=== PATIENT | female | born 1980 | race Two or more races ===

== ENCOUNTER 2019-01-05 23:31 | Emergency (ER) | payer MEDICAID ==
[2019-01-06] MEDS ORDERED: ACETAMINOPHEN 325 MG TABLET PO ONE (00:56)
--- NOTE | 2019-01-06 01:00 | ER Document Report ---
ED General - General Chief Complaint: Productive Cough Stated Complaint: SHORTNESS OF BREATH Time Seen by Provider: 01/06/19 00:51 TRAVEL OUTSIDE OF THE [place] IN LAST 30 DAYS: No - HPI Notes: .38-year-old female presents with 1 week of cough and now dyspnea. Initially productive of green-yellow sputum, some subjective fever. However is become nonproductive over the last several days she is becoming increasingly more dyspneic, especially on exertion. Moderate intensity, gradual onset, nonradiating. No recent travel, travel outside the country. No other medical issues. No recent use of antibiotics. Moderate intensity. Nonradiating. No other modifying factors, no other associated symptoms, no other provocative or palliative factors - Related Data Allergies/Adverse Reactions: No Known Allergies Allergy (Unverified 01/05/19 23:44) Home Medications: synthroid. certraline. BC pills. OTC cough medicine Past Medical History - Social History Smoking Status: Never Smoker Frequency of alcohol use: None Drug Abuse: None Family History: Reviewed & Not Pertinent Patient has suicidal ideation: No Patient has homicidal ideation: No - Medical History Medical History: Negative Review of Systems - Review of Systems Notes: Review of systems as in the history of present illness, otherwise negative x 10 systems. Physical Exam - Vital signs Vitals: Temp Pulse Resp BP Pulse Ox 98.9 F 114 H 18 133/51 H 96 01/05/19 23:37 01/05/19 23:37 01/05/19 23:37 01/05/19 23:37 01/05/19 23:37 - Notes Notes: General: Well developed . HEENT: Normocephalic, atraumatic. Pupils equal round reactive to light. No JVD. Chest: No trauma. Respiratory: Fair air exchange, coarse breath sounds, crackles in the posterior lateral left lung field Cardiac: Regular rhythm. No murmurs or gallops. Abdomen: Soft, benign. Nondistended. Nontender. Back: No asymmetry or gross abnormality. Motor: Grossly normal power and tone. Neurologic: Alert, nonfocal. Cranial nerves II-12 are intact. Sensation intact. Vascular: Well perfused. Normal peripheral pulses. Skin: No petechiae or purpura. Course - Re-evaluation Re-evalutation: 01/06/19 01:10 38-year-old female with likely pneumonia, complicated by significant dyspnea. We will proceed with basic labs, x-ray, fluids, reevaluate. 01/06/19 02:15 Labs reviewed, chemistries unremarkable, CBC unremarkable. Chest x-ray shows patchy bilateral lower lung field pneumonia. Patient has maintained her oxygen saturation, feels somewhat better. Be treated as community acquired pneumonia as an outpatient with oral doxycycline, given a dose in the ED, prescription for doxycycline and antitussives. - Vital Signs Vital signs: Temp Pulse Resp BP Pulse Ox 98.9 F 119 H 18 133/51 H 94 01/05/19 23:37 01/05/19 23:49 01/05/19 23:37 01/05/19 23:37 01/05/19 23:49 - Laboratory Result Diagrams: 01/06/19 01:20 01/06/19 01:20 Laboratory results interpreted by me: 01/06/19 01/06/19 01:20 01:20 Hgb 11.2 L Hct 33.6 L RDW 15.1 H Sodium 136.5 L Discharge - Discharge Clinical Impression: CAP (community acquired pneumonia) Qualifiers: Laterality: unspecified laterality Qualified Code(s): J18.9 - Pneumonia, unspecified organism Condition: Stable Disposition: HOME, SELF-CARE Instructions: Pneumonia ([facility]) Additional Instructions: Follow-up with your doctor in the next couple of days. Prescriptions: Hydrocodone Bit/Homatropine [Hycodan Syrup 5-1.5 mg/5 ml Ud Cup] 5 ml PO Q4HP PRN #120 ml PRN Reason: Doxycycline Hyclate 100 mg PO BID #20 capsule
[2019-01-06 01:37] LABS: ABSOLUTE EOSINOPHILS # (AUTO) 0.1 10^3/uL (0.0-0.6); ABSOLUTE LYMPHOCYTES (AUTO) 1.4 10^3/uL (0.5-4.7); ABSOLUTE MONOCYTES (AUTO) 0.9 10^3/uL (0.1-1.4); ABSOLUTE NEUT (AUTO) 7.2 10^3/uL (1.7-8.2); BASOPHILS % (AUTO) 0.3 % (0-2); EOSINOPHILS % (AUTO) 1.4 % (0-6); HEMATOCRIT 33.6 % (36.0-47.0); HEMOGLOBIN 11.2 g/dL (12.0-15.5); LYMPHOCYTES % (AUTO) 14.8 % (13-45); MEAN CORPUSCULAR HEMOGLOBIN 27.4 pg (27.0-33.4); MEAN CORPUSCULAR HGB CONC 33.3 g/dL (32.0-36.0); MEAN CORPUSCULAR VOLUME 82 fl (80-97); MONOCYTES % (AUTO) 9.2 % (3-13); PLATELET COUNT 213 10^3/uL (150-450); RED BLOOD COUNT 4.08 10^6/uL (3.72-5.28); RED CELL DISTRIBUTION WIDTH 15.1 % (11.5-14.0); SEGMENTED NEUTROPHILS % (AUTO) 74.3 % (42-78); TOTAL CELLS COUNTED % (AUTO) 100 %; WHITE BLOOD COUNT 9.7 10^3/uL (4.0-10.5)
[2019-01-06 01:41] LABS: VENOUS BLOOD BASE EXCESS 0.2 mmol/L; VENOUS BLOOD HCO3 24.9 mmol/L (20-32); VENOUS BLOOD PCO2 40.2 mmHg (35-63); VENOUS BLOOD PH 7.41 (7.30-7.42)
[2019-01-06 01:43] LABS: INTERNATIONAL RATION (INR) 0.97; PROTHROMBIN TIME 12.9 SEC (11.4-15.4)
[2019-01-06] MEDS ORDERED: DOXYCYCLINE HYCLATE 100 MG TABLET PO ONE (01:51)
[2019-01-06 01:53] LABS: ALBUMIN 3.6 g/dL (3.5-5.0); ALKALINE PHOSPHATASE 82 U/L (38-126); ANION GAP 11 (5-19); ASPARTATE AMINO TRANSFERASE 28 U/L (14-36); BILIRUBIN,DIRECT 0.1 mg/dL (0.0-0.4); BILIRUBIN,TOTAL 0.5 mg/dL (0.2-1.3); BLOOD UREA NITROGEN 10 mg/dL (7-20); CALCIUM 8.9 mg/dL (8.4-10.2); CARBON DIOXIDE 24 mmol/L (22-30); CHLORIDE 102 mmol/L (98-107); GLUCOSE 99 mg/dL (75-110); POTASSIUM 3.8 mmol/L (3.6-5.0); TOTAL PROTEIN 7.2 g/dL (6.3-8.2)
--- NOTE | 2019-01-06 02:03 | RADIOLOGY REPORT (SQ) ---
EXAM DESCRIPTION: XR CHEST 2 VIEWS COMPLETED DATE/TME: 01/06/2019 00:57 CLINICAL HISTORY: 38 years, Female, Cough and dyspnea COMPARISON: None. NUMBER OF VIEWS: TECHNIQUE: LIMITATIONS: None. FINDINGS: There are patchy infiltrates in the mid to lower lung bilaterally, compatible with pneumonia. No evidence of pleural effusion. The heart and mediastinum are unremarkable. Pulmonary vascularity appears normal. IMPRESSION: Bilateral pneumonia. copyright 2010 [employer]- All Rights Reserved
[2019-01-06 02:37] VITALS: BP 128/78
== END 2019-01-06 02:40 | disposition home or self-care (01) ==
LOC: ER 23:31
DX: J18.9 Pneumonia, unspecified organism (principal); Z79.899 Other long term (current) drug therapy
CPT/HCPCS: 99283; 36415; 87040; 85025; 85610; 81025; 80053; 82803; 83605; 71046; J3490 ×2

== ENCOUNTER 2019-11-02 16:46 | Emergency (ER) | payer SELFPAY ==
--- NOTE | 2019-11-02 18:13 | ER Document Report ---
ED Medical Screen (RME) - General Chief Complaint: Abdominal Pain Stated Complaint: UPPER ABDOMINAL/BACK PAIN Time Seen by Provider: 11/02/19 18:02 Mode of Arrival: Ambulatory Information source: Patient Notes: Patient is a 38-year-old female comes emergency room complaining of right upper quadrant pain right epigastric pain. Patient states been going on for about 8 months and she is seen a primary care provider who was tested for H. pylori but it seems to be getting worse with radiation to the right back. She states that eating fried fatty food does seem to make it worse also drinking coffee with almond milk and it makes it worse patient is afraid that it is her gallbladder but she started with another episode approximately 1 hour prior to arrival tonight and her made her come to the emergency room to get checked out. Currently she is having no pain or discomfort. She denies any other medical problems with exception of a of hypothyroid. Patient does not smoke drink or do drugs. She currently is on her menses. She is 3 para 3. Physical examination: Patient is a well-nourished well-developed overweight 38-year-old female is in no apparent distress on examination tonight. Cardiac: Regular rate and rhythm no murmurs noted. Lungs: Bilateral breath sounds breath sounds increased clear to auscultation. Abdomen: In a sitting position patient has bowel sounds present all 4 quads on auscultation. She is nontender in all 4 quadrants in a sitting position. Could not elicit a positive Robin sign while sitting. I discussed with patient that we can do some lab work to start with if that comes back negative but would not do any good to do an ultrasound at this time since she is not having any symptoms. If she comes back with elevated LFTs it may be well worth doing an ultrasound for possible cholecystitis. I have greeted and performed a rapid initial assessment of this patient. A comprehensive ED assessment and evaluation of the patient, analysis of test results and completion of the medical decision making process will be conducted by additional ED providers. Dictation of this chart was performed using voice recognition software; therefore, there may be some unintended grammatical errors. TRAVEL OUTSIDE OF THE [place] IN LAST 30 DAYS: No - Related Data Allergies/Adverse Reactions: No Known Allergies Allergy (Verified 11/02/19 18:01) Physical Exam - Vital signs Vitals: Temp Pulse Resp BP Pulse Ox 98.4 F 88 20 122/74 100 11/02/19 17:13 11/02/19 17:13 11/02/19 17:13 11/02/19 17:13 11/02/19 17:13 Course - Vital Signs Vital signs: Temp Pulse Resp BP Pulse Ox 98.4 F 88 20 122/74 100 11/02/19 17:13 11/02/19 17:13 11/02/19 17:13 11/02/19 17:13 11/02/19 17:13
[2019-11-02 19:03] LABS: ABSOLUTE EOSINOPHILS # (AUTO) 0.1 10^3/uL (0.0-0.6); ABSOLUTE LYMPHOCYTES (AUTO) 1.2 10^3/uL (0.5-4.7); ABSOLUTE MONOCYTES (AUTO) 0.7 10^3/uL (0.1-1.4); BASOPHILS % (AUTO) 0.2 % (0-2); EOSINOPHILS % (AUTO) 0.6 % (0-6); HEMOGLOBIN 13.6 g/dL (12.0-15.5); LYMPHOCYTES % (AUTO) 11.2 % (13-45); MEAN CORPUSCULAR HEMOGLOBIN 28.2 pg (27.0-33.4); MEAN CORPUSCULAR HGB CONC 33.2 g/dL (32.0-36.0); MEAN CORPUSCULAR VOLUME 85 fl (80-97); MONOCYTES % (AUTO) 6.3 % (3-13); PLATELET COUNT 238 10^3/uL (150-450); RED BLOOD COUNT 4.82 10^6/uL (3.72-5.28); RED CELL DISTRIBUTION WIDTH 14.4 % (11.5-14.0); SEGMENTED NEUTROPHILS % (AUTO) 81.7 % (42-78); TOTAL CELLS COUNTED % (AUTO) 100 %; WHITE BLOOD COUNT 11.1 10^3/uL (4.0-10.5)
[2019-11-02 19:11] LABS: APPEARANCE,URINE SLIGHTLY-CLOUDY; BILIRUBIN,URINE NEGATIVE (NEGATIVE); COLOR,URINE YELLOW; GLUCOSE, URINE NEGATIVE (NEGATIVE); KETONES,URINE NEGATIVE (NEGATIVE); LEUKOCYTE ESTERASE,URINE NEGATIVE (NEGATIVE); NITRITE,URINE NEGATIVE (NEGATIVE); PROTEIN,URINE NEGATIVE (NEGATIVE); URINE SPECIFIC GRAVITY 1.021; UROBILINOGEN,URINE NEGATIVE mg/dL (<2.0)
[2019-11-02 19:22] LABS: ALBUMIN 4.3 g/dL (3.5-5.0); ALKALINE PHOSPHATASE 120 U/L (38-126); ANION GAP 10 (5-19); ASPARTATE AMINO TRANSFERASE 96 U/L (14-36); BILIRUBIN,TOTAL 0.4 mg/dL (0.2-1.3); BLOOD UREA NITROGEN 18 mg/dL (7-20); CALCIUM 9.7 mg/dL (8.4-10.2); CARBON DIOXIDE 28 mmol/L (22-30); CHLORIDE 101 mmol/L (98-107); GLUCOSE 95 mg/dL (75-110); POTASSIUM 4.7 mmol/L (3.6-5.0); TOTAL PROTEIN 7.8 g/dL (6.3-8.2)
--- NOTE | 2019-11-02 22:24 | ER Document Report ---
ED GI/ - General Chief Complaint: Abdominal Pain Stated Complaint: UPPER ABDOMINAL/BACK PAIN Time Seen by Provider: 11/02/19 18:02 Primary Care Provider: [facility] [Provider Group] - Follow up as needed Mode of Arrival: Ambulatory Notes: Patient is a 38-year-old female that comes emergency department for chief complaint of epigastric pain (she points to the area). She states that around 5 PM she had sudden onset severe pain with nausea, the pain started in the epigastric area and wraps around to her back on the right side. She denies fever, chest pain, shortness of breath, vomiting, abnormal bowel movements. She states she is currently being treated for possible gastritis with Prilosec and Pepcid. She does admit that she has been drinking more alcohol over the past week since her kids are back in school, she also admits to regular coffee with caffeine. Only other past medical history is hypothyroidism. She was tested and negative for H. pylori reportedly. She is currently on her menstrual cycle. She denies any abdominal surgeries. TRAVEL OUTSIDE OF THE [place] IN LAST 30 DAYS: No - Related Data Allergies/Adverse Reactions: No Known Allergies Allergy (Verified 11/02/19 18:01) Home Medications: levothyroxine. control. certraline Past Medical History - General Information source: Patient - Social History Smoking Status: Never Smoker Chew tobacco use (# tins/day): No Frequency of alcohol use: Social Drug Abuse: None Lives with: Family Family History: Reviewed & Not Pertinent Patient has homicidal ideation: No - Immunizations Immunizations up to date: Yes Hx Diphtheria, Pertussis, Tetanus Vaccination: Yes Review of Systems - Review of Systems Constitutional: No symptoms reported EENT: No symptoms reported Cardiovascular: No symptoms reported Respiratory: No symptoms reported Gastrointestinal: See HPI Genitourinary: No symptoms reported Female Genitourinary: No symptoms reported Musculoskeletal: No symptoms reported Skin: No symptoms reported Hematologic/Lymphatic: No symptoms reported Neurological/Psychological: No symptoms reported Physical Exam - Vital signs Vitals: Temp Pulse Resp BP Pulse Ox 98.4 F 88 20 122/74 100 11/02/19 17:13 11/02/19 17:13 11/02/19 17:13 11/02/19 17:13 11/02/19 17:13 - Notes Notes: GENERAL: Alert, interacts well. No acute distress. HEAD: Normocephalic, atraumatic. EYES: Pupils equal, round, and reactive to light. Extraocular movements intact. ENT: Oral mucosa moist, tongue midline. Oropharynx unremarkable. Airway patent. NECK: Full range of motion. Supple. Trachea midline. No lymphadenopathy. LUNGS: Clear to auscultation bilaterally, no wheezes, rales, or rhonchi. No respiratory distress. Non-tender chest wall. HEART: Regular rate and rhythm. No murmur ABDOMEN: Soft, non-tender. Non-distended. Bowel sounds present in all 4 q uadrants. GENITOURINARY: Deferred EXTREMITIES: Moves all 4 extremities spontaneously. No edema, normal radial and dorsalis pedis pulses bilaterally. No cyanosis. BACK: no cervical, thoracic, lumbar midline tenderness. No saddle anesthesia, normal distal neurovascular exam. Moves all extremities in full range of motion. NEUROLOGICAL: Alert and oriented x3. Normal speech. Cranial nerves II through X II grossly intact. Strength 5/5 in all extremities. PSYCH: Normal affect, normal mood. SKIN: Warm, dry, normal turgor. No rashes or lesions noted. Course - Re-evaluation Re-evalutation: Patient's abdomen is benign on my exam but she does continue to have recurrent sharp upper abdominal pain with nausea. Gastritis. Discussed options, ultrasound was performed. CBC unremarkable, chemistry shows mild elevation of LFTs but AST is greater than ALT and patient endorses 1 alcoholic drink per day for the last several days. Lipase unremarkable, bilirubin unremarkable. Ultrasound does show cholelithiasis without any acute concerning findings otherwise. I discussed with patient. I also discussed to the area that they recommend a CT imaging in the outpatient basis to make sure that this is not a cancerous mass in her liver. Patient states understanding of this as well. Patient referred to the surgical clinic, provided with medication for symptom management after discussing options in detail, discussed return precautions. Patient states understanding and agreement. Asymptomatic and well-appearing at time of discharge. - Vital Signs Vital signs: Temp Pulse Resp BP Pulse Ox 98.4 F 69 18 121/83 100 11/03/19 00:27 11/03/19 00:27 11/03/19 00:27 11/03/19 00:27 11/03/19 00:27 - Laboratory Result Diagrams: 11/02/19 18:20 11/02/19 18:20 Laboratory results interpreted by me: 11/02/19 11/02/19 11/02/19 18:20 18:20 18:20 WBC 11.1 H RDW 14.4 H Lymph % (Auto) 11.2 L Absolute Neuts (auto) 9.0 H Seg Neutrophils % 81.7 H AST 96 H ALT 42 H Urine Blood SMALL H Discharge - Discharge Clinical Impression: Epigastric pain Cholelithiasis Qualifiers: Cholelithiasis location: gallbladder Cholecystitis presence: without cholecystitis Biliary obstruction: without biliary obstruction Qualified Code(s): K80.20 - Calculus of gallbladder without cholecystitis without obstruction Condition: Stable Disposition: HOME, SELF-CARE Additional Instructions: You do have gallstones, I do suspect this is the cause of your pain and symptoms. However there is no infection or blockage at this time. He also have an area on your liver which needs additional imaging to make sure this is benign and not a mass/cancer. Follow with the primary care referral for additional work-up in regards to this. Call the listed surgical clinic referral in regards to your gallbladder for management/surgery. Avoid eating any fried/greasy/fatty foods. You can take the Toradol for pain and Zofran for nausea if needed, however come back if you are worse including severe worsening pain, vomiting, fever, or any other concerning symptoms. Prescriptions: Ketorolac Tromethamine [Toradol 10 mg Tablet] 10 mg PO Q8HP PRN #24 tablet PRN Reason: Ondansetron [Zofran Odt 4 mg Tablet] 1 - 2 tab PO Q4H PRN #15 tab.rapdis PRN Reason: For Nausea/Vomiting Referrals: [facility] [Provider Group] - Follow up as needed
--- NOTE | 2019-11-02 23:24 | RADIOLOGY REPORT (SQ) ---
Ultrasound of the right upper quadrant of the abdomen: 11/02/2019 10:21 PM CDT Technique: Multiple grayscale color Doppler images of the right upper quadrant of the abdomen were obtained. Comparison: None available History: 38-year old patient with right upper quadrant abdominal pain. Findings: The visualized portions of the hepatic parenchyma demonstrates normal echogenicity. There is a more focal echogenic area within the liver measuring up to 4.4 x 1.8 x 2.9 cm. This is near the alban hepatis. There is normal directional flow seen within the main portal vein. Cholelithiasis is seen. No significant gallbladder wall thickening is seen. Sonographic Robin's sign was negative. The common duct measures 3-4 mm. The right kidney measures up to 10.5 cm in length. The right kidney demonstrates normal cortical echogenicity with no evidence to suggest hydronephrosis. The visualized portions of the IVC, abdominal aorta, and pancreatic head appear normal. No free intraperitoneal fluid is seen. Impression: Cholelithiasis is seen. The common duct is within normal limits of size. There is a focal echogenic area near the alban hepatis which may represent a hemangioma or mass. This can be followed with multiphase postcontrast imaging to better delineate this.
[2019-11-03 00:28] VITALS: BP 121/83
== END 2019-11-03 00:27 | disposition home or self-care (01) ==
LOC: ER 16:46
DX: K80.20 Calculus of gallbladder without cholecystitis without obstruction (principal); R10.13 Epigastric pain; E03.9 Hypothyroidism, unspecified; Z79.899 Other long term (current) drug therapy; Z79.3 Long term (current) use of hormonal contraceptives; R74.0 Nonspecific elevation of levels of transaminase and lactic acid dehydrogenase [LDH]
CPT/HCPCS: 36415; 76705; 80053; 81001; 81025; 83690; 85025; 99284